=== PATIENT | female | born 1995 | race Caucasian/White ===

== ENCOUNTER 2018-09-10 16:30 | Emergency (ER) | payer BC, OTHER ==
[2018-09-10 16:52] VITALS: BP 142/65
--- NOTE | 2018-09-10 17:18 | UC ---
UC General HPI - HPI Summary HPI Summary: Patient has had one week of constant diarrhea, has decreased appetite, did eat out the day before it started. she is tolerateing fluids ok, but now stool is like water, urgency and frequency present - History of Current Complaint Chief Complaint: UCGI Stated Complaint: DIARRHEA Time Seen by Provider: 09/10/18 16:59 Hx Obtained From: Patient Hx Last Menstrual Period: 08/27/18 Onset/Duration: Sudden Onset, Lasting Days - 7 Timing: Constant Onset Severity: Moderate Current Severity: Moderate Pain Intensity: 4 Associated Signs & Symptoms: Positive: Back Pain, Diarrhea - Allergy/Home Medications Allergies/Adverse Reactions: Allergies Allergy/AdvReac Type Severity Reaction Status Date / Time sulfamethoxazole Allergy Vomiting Verified 09/10/18 16:53 [From Bactrim] trimethoprim [From Bactrim] Allergy Vomiting Verified 09/10/18 16:53 PMH/Surg Hx/FS Hx/Imm Hx Previously Healthy: Yes - Surgical History Surgical History: Yes Surgery Procedure, Year, and Place: dental - Family History Family History: crohnes - Social History Alcohol Use: None Substance Use Type: None Smoking Status (MU): Never Smoked Tobacco Review of Systems Constitutional: Fatigue Skin: Negative Eyes: Negative ENT: Negative Respiratory: Negative Cardiovascular: Negative Gastrointestinal: Abdominal Pain, Diarrhea, Nausea Genitourinary: Negative Motor: Negative Neurovascular: Negative Musculoskeletal: Negative Neurological: Negative Psychological: Negative Is Patient Immunocompromised?: No All Other Systems Reviewed And Are Negative: Yes Physical Exam Triage Information Reviewed: Yes Appearance: Well-Nourished, Ill-Appearing, Pain Distress Vital Signs: Initial Vital Signs Temp 97.8 F 09/10/18 16:45 Pulse 83 09/10/18 16:45 Resp 16 09/10/18 16:45 BP 142/65 09/10/18 16:45 Pulse Ox 100 09/10/18 16:45 Vital Signs Reviewed: Yes Eye Exam: Normal ENT Exam: Normal Dental Exam: Normal Neck exam: Normal Neck: Positive: Supple, Nontender, No Lymphadenopathy Respiratory Exam: Normal Respiratory: Positive: Chest non-tender, Lungs clear, Normal breath sounds Cardiovascular Exam: Normal Cardiovascular: Positive: RRR, No Murmur, Pulses Normal Abdomen Description: Positive: Soft, CVA Tenderness (R) - neg, CVA Tenderness (L ) - neg, Other: - no masses, Bowel Sounds: Positive: Hyperactive Musculoskeletal Exam: Normal Neurological Exam: Normal Psychological Exam: Normal Skin Exam: Normal Course/Dx - Course Course Of Treatment: hx obtained, exam performed , meds reviewed, UA positive for leuks, she remains asymtpomatic and stool cultures kit sent home, educated patient on symtpom relief. did treat the UA - Differential Dx - Multi-Symptom Provider Diagnoses: diarrhea. nausea Discharge - Sign-Out/Discharge Documenting (check all that apply): Patient Departure All imaging exams completed and their final reports reviewed: No Studies - Discharge Plan Condition: Stable Disposition: HOME Patient Education Materials: Acute Diarrhea (ED) Referrals: Leonard Shell MD [Primary Care Provider] - Additional Instructions: 1. return the stool kit at your earliest convenience 2. Use zofran as needed for nausea 3. Maintain good hydration 4. if you develop weakness, dizzyness, acute vomiting or increased stomch pains , report to ER. - Billing Disposition and Condition Condition: STABLE Disposition: Home
[2018-09-10] MEDS ORDERED: Nitrofurantoin Macrocrystals* 50 MG CAP PO ONE (17:39)
== END 2018-09-10 17:47 | disposition home or self-care (01) ==
LOC: UCCORT 16:30
DX: R19.7 Diarrhea, unspecified (principal); R11.0 Nausea; Z88.1 Allergy status to other antibiotic agents
CPT/HCPCS: 81003; 87086; 99202; A9270-GY; G0463

== ENCOUNTER 2019-07-27 07:25 | Emergency (ER) | payer BC ==
[2019-07-27 07:44] VITALS: BP 132/73
--- NOTE | 2019-07-27 08:06 | UC ---
Shoulder Pain HPI - HPI Summary HPI Summary: 23 yo woman, awoke in the night around 2 am with bilateral pain in both anterior axillary areas, worsened with movement, without diaphoresis, had a catch in her breathing, but not really short of breath. Pain made tolerable with use of nsaid which she takes for menstrual cramps. Pain caused some mild nausea but no vomiting. Not using contraception, and no recent combined ocp use, had a progesterone implant. Non smoker without FH of heart disease. Completed a house move a wweek ago with some lifting , and last night walked her 2 dogs for 1/2 mile, but recalls no excess pulling or resistance. No recent cough or illness. - History of Current Complaint Chief Complaint: UCGeneralIllness Stated Complaint: BILATERAL SHOULDER PAIN Time Seen by Provider: 07/27/19 07:57 Hx Obtained From: Patient Hx Last Menstrual Period: 07/07/19 Onset/Duration: Sudden Onset Timing: Constant Severity Initially: Moderate Severity Currently: Moderate Pain Intensity: 8 Character: Aching Aggravating Factor(s): Movement, Lifting, External Rotation Alleviating Factor(s): Rest, OTC Meds Associated Signs And Symptoms: Positive: Negative Related History: Dominant Hand Right - Risk Factors DVT Risk Factors: Negative Septic Arthritis Risk Factor: Negative - Allergies/Home Medications Allergies/Adverse Reactions: Allergies Allergy/AdvReac Type Severity Reaction Status Date / Time sulfamethoxazole Allergy Vomiting Verified 07/27/19 07:44 [From Bactrim] trimethoprim [From Bactrim] Allergy Vomiting Verified 07/27/19 07:44 Home Medications: Home Medications Ibuprofen 400 mg PO ONCE 07/27/19 [History Confirmed 07/27/19] PMH/Surg Hx/FS Hx/Imm Hx Previously Healthy: Yes Endocrine History: Hypothyroidism - Surgical History Surgical History: Yes Surgery Procedure, Year, and Place: dental - Family History Known Family History: Positive: Hypertension - father had htn, but no longer treated., Other - father has RA Negative: Cardiac Disease, Diabetes Family History: crohnes - Social History Occupation: Employed Full-time Lives: With Family Alcohol Use: Rare Substance Use Type: None Smoking Status (MU): Never Smoked Tobacco Have You Smoked in the Last Year: No Review of Systems All Other Systems Reviewed And Are Negative: Yes Constitutional: Positive: Fatigue Skin: Positive: Negative Eyes: Positive: Negative ENT: Negative: Sore Throat, Ear Ache Respiratory: Positive: Shortness Of Breath. Negative: Cough Cardiovascular: Positive: Chest Pain. Negative: Palpitations Genitourinary: Positive: Negative Motor: Positive: Decreased ROM Neurovascular: Positive: Negative Musculoskeletal: Positive: Myalgia Neurological: Positive: Negative Psychological: Positive: Negative Is Patient Immunocompromised?: No Physical Exam Triage Information Reviewed: Yes Appearance: Well-Appearing - mildly anxious, Pain Distress - mild Vital Signs: Initial Vital Signs Temp 98 F 07/27/19 07:37 Pulse 85 07/27/19 07:37 Resp 18 07/27/19 07:37 BP 132/73 07/27/19 07:37 Pulse Ox 100 07/27/19 07:37 Eye Exam: Other - HECTOR, normal fundi Eyes: Positive: Conjunctiva Clear ENT: Positive: Pharynx normal Neck: Positive: Supple - full rom in cervical spine, Nontender, No Lymphadenopathy Respiratory: Positive: Lungs clear, Normal breath sounds Cardiovascular: Positive: RRR, No Murmur Abdomen Description: Positive: Nontender, No Organomegaly, Soft Musculoskeletal: Positive: Strength Intact, ROM Intact - full rom in both arms, but can reproduce pain with palpation of insertion of the pectoral, and with ER of both shoulder. No breast tenderness, no axillary nodes. Neurological: Positive: Alert, Muscle Tone Normal Psychological Exam: Normal Skin Exam: Normal Diagnostics - EKG Cardiac Rate: NL Cardiac Rhythm: Sinus: Normal Ectopy: None ST Segment: Non-Specific - very mild depression in lateral leads Shoulder Course/Dx - Course Course Of Treatment: Discussed no clinical evidence of heart strain or PE, and pain can be reproduced with palpation of the pectorals and chest wall. Begin naproxen for relief of pain, monitor and follow up with PMD if does not resolve. - Differential Dx/Diagnosis Differential Diagnosis/HQI/PQRI: Arthritis, Contusion, Rotator Cuff Injury, Sprain, Other - ACS, PE Provider Diagnosis: Muscle strain of anterior chest wall Discharge ED - Sign-Out/Discharge Documenting (check all that apply): Patient Departure All imaging exams completed and their final reports reviewed: No Studies - Discharge Plan Condition: Stable Disposition: HOME Prescriptions: Naproxen [Naproxen 500 mg tab] 500 mg PO BID PRN #30 tablet PRN Reason: Pain - Moderate Patient Education Materials: Chest Wall Pain (ED) Forms: *Work Release Referrals: Leonard Shell MD [Primary Care Provider] - Additional Instructions: As discussed, the cause of the pain is consistent with strain in the pectoral muscles. Use naproxen twice daily with food for pain. Follow up with your primary care doctor if pain persists fo more than a week, or worsens significantly. - Billing Disposition and Condition Condition: STABLE Disposition: Home
== END 2019-07-27 08:38 | disposition home or self-care (01) ==
LOC: UCCORT 07:25
DX: S29.011A Strain of muscle and tendon of front wall of thorax, initial encounter (principal); X50.0XXA Overexertion from strenuous movement or load, initial encounter; Y93.89 Activity, other specified; Y92.009 Unspecified place in unspecified non-institutional (private) residence as the place of occurrence of the external cause
CPT/HCPCS: 93005; 99212; G0463